=== PATIENT | male | born 1960 | race Asian ===

== ENCOUNTER 2020-05-14 06:57 | Outpatient (REF) | payer BC, SELFPAY ==
[2020-05-14 08:04] LABS: COVID-19 Test Negative (Negative)
== END 2020-05-14 06:58 | disposition home or self-care (01) ==
LOC: HO.LAB 06:57
PROVIDERS: Visit Provider Internal Medicine
DX: Z20.828 Contact with and (suspected) exposure to other viral communicable diseases (principal)
CPT/HCPCS: 87635

== ENCOUNTER 2020-05-28 06:59 | Outpatient (REF) | payer BC, SELFPAY ==
[2020-05-28 07:21] LABS: COVID-19 Test Negative (Negative)
== END 2020-05-28 07:00 | disposition home or self-care (01) ==
LOC: HO.LAB 06:59
PROVIDERS: Visit Provider Internal Medicine
DX: Z20.828 Contact with and (suspected) exposure to other viral communicable diseases (principal)
CPT/HCPCS: 87635

== ENCOUNTER 2020-05-31 14:23 | Outpatient (REF) | payer BC, SELFPAY ==
[2020-05-31 15:15] LABS: COVID-19 Test Negative (Negative)
== END 2020-05-31 14:24 | disposition home or self-care (01) ==
LOC: HO.LAB 14:23
PROVIDERS: PCP Internal Medicine; Visit Provider Internal Medicine
DX: Z20.828 Contact with and (suspected) exposure to other viral communicable diseases (principal)
CPT/HCPCS: 87635; C9803

== ENCOUNTER 2020-06-18 07:01 | Outpatient (REF) | payer OTHER, SELFPAY ==
[2020-06-18 08:05] LABS: COVID-19 Test Negative (Negative)
== END 2020-06-18 07:02 | disposition home or self-care (01) ==
LOC: HO.EMPCOV 07:01
PROVIDERS: Visit Provider Internal Medicine
DX: Z20.828 Contact with and (suspected) exposure to other viral communicable diseases (principal)
CPT/HCPCS: 87635; C9803

== ENCOUNTER 2020-09-06 08:32 | Outpatient (REF) | payer BC, SELFPAY ==
[2020-09-06 09:36] LABS: Influenza A PCR NEGATIVE (Negative); Influenza B PCR NEGATIVE (Negative); Resp Syncy Virus RNA Qual PCR NEGATIVE (Negative); SARS COV2 PCR INHOUSE NEGATIVE (Negative)
== END 2020-09-06 08:33 | disposition home or self-care (01) ==
LOC: HO.EMPCOV 08:32
PROVIDERS: Visit Provider Internal Medicine
DX: Z20.822 Contact with and (suspected) exposure to COVID-19 (principal)
CPT/HCPCS: 0241U; 36415

== ENCOUNTER 2020-09-26 07:35 | Outpatient (REF) | payer OTHER, SELFPAY ==
[2020-09-26 08:05] LABS: COVID-19 Test Negative (Negative); IDNOW Serial# 55D5AD1C
== END 2020-09-26 07:36 | disposition home or self-care (01) ==
LOC: HO.EMPCOV 07:35
PROVIDERS: Visit Provider Internal Medicine
DX: Z20.822 Contact with and (suspected) exposure to COVID-19 (principal)
CPT/HCPCS: 36415; 87635; C9803

== ENCOUNTER 2021-05-20 08:27 | Outpatient (REF) | payer BC, SELFPAY ==
[2021-05-20 09:21] LABS: Influenza A PCR NEGATIVE (Negative); Influenza B PCR NEGATIVE (Negative); Resp Syncy Virus RNA Qual PCR NEGATIVE (Negative); SARS COV2 PCR INHOUSE NEGATIVE (Negative)
== END 2021-05-20 08:28 | disposition home or self-care (01) ==
LOC: HO.LAB 08:27
PROVIDERS: Visit Provider Internal Medicine
DX: Z20.822 Contact with and (suspected) exposure to COVID-19 (principal)
CPT/HCPCS: 0241U; 36415; C9803

== ENCOUNTER 2022-04-11 14:37 | Outpatient (REF) | payer BC, SELFPAY | END 2022-04-11 14:38 | disposition home or self-care (01) | LOC: HO.HOSX 14:37 | PROVIDERS: Visit Provider Orthopaedic Surgery | DX: Z13.89 Encounter for screening for other disorder (principal) ==

== ENCOUNTER 2022-04-14 | Outpatient (REF) | payer BC, SELFPAY ==
--- NOTE | ~2022-04-14 | XR_ITS ---
EXAMINATION: XR ELBOW, RIGHT CLINICAL INFORMATION: M25.529 - Pain in unspecified elbow COMPARISON: None TECHNIQUE: AP, lateral, and oblique views of the right elbow. FINDINGS: Small osteophyte at the coronoid process. Small enthesopathic spurs at the common flexor and common extensor origins at the medial and lateral epicondyles. Small 2 mm chronic loose body is suspected in the elbow joint to the confluence of the radius, ulna, and distal humerus. No effusion. No fracture or malalignment. Bone mineralization is normal. Tiny enthesopathic spur at the triceps tendon insertion on the olecranon. XR/XR elbow RT 2V IMPRESSION: 1. Minimal arthrosis at the left elbow. 2. Small enthesopathic spurs at the common flexor and common extensor origins and the triceps insertion.
== END 2022-04-14 00:01 | disposition home or self-care (01) ==
LOC: HO.HOSX
PROVIDERS: Visit Provider Orthopaedic Surgery
DX: M77.11 Lateral epicondylitis, right elbow (principal)
CPT/HCPCS: 20605; 73070; J1100

== ENCOUNTER 2022-09-28 09:38 | Outpatient (REF) | payer BC, SELFPAY ==
--- NOTE | ~2022-09-28 | XR_ITS ---
EXAMINATION: XR CHEST CLINICAL INFORMATION: Cough COMPARISON: CT calcium scoring study with topogram 05/01/2021 ([facility]). TECHNIQUE: 2 views of the chest were obtained. FINDINGS: The lungs are clear. There is no airspace consolidation or groundglass opacity. The costophrenic sulci are well-defined. No hyperinflation. Heart size normal. Vascularity normal. Mediastinal contours unremarkable. No acute bony abnormality. XR/XR chest 2V IMPRESSION: Unremarkable examination.
== END 2022-09-28 09:39 | disposition home or self-care (01) ==
LOC: HO.XRAY 09:38
PROVIDERS: Absent Provider Emergency Medicine; PCP Internal Medicine; Visit Provider Emergency Medicine
DX: R05.9 Cough, unspecified (principal)
CPT/HCPCS: 71046

== ENCOUNTER 2022-09-29 11:29 | Outpatient (REF) | payer BC, SELFPAY ==
[2022-09-29 12:19] LABS: MANUAL DIFF FLAG NO
[2022-09-29 12:27] LABS: Basophils Absolute Auto 0.1 X10*3/uL (0.0-0.2); Basophils Percent Auto 0.4 % (0-2); Eosinophils Absolute Auto 0.1 X10*3/uL (0.0-0.4); Eosinophils Percent Auto 0.4 % (0-4); Hematocrit 47.2 % (42.0-52.0); Hemoglobin 16.1 g/dl (14.0-18.0); Imm Gran Abs Auto 0.04 X10*3/uL (0.00-0.03); Imm Gran Pct Auto 0.3 % (0.0-0.4); Lymphocytes Absolute Auto 3.4 X10*3/uL (1.2-4.9); Lymphocytes Percent Auto 25.3 % (20-40); Mean Corpuscular HGB Conc 34.1 g/dl (31.0-36.0); Mean Corpuscular Hemoglobin 30.6 pg (27.0-33.0); Mean Corpuscular Volume 89.7 fL (80.0-98.0); Monocytes Percent Auto 7.3 % (2-11); Neutrophils Absolute Auto 8.8 x10*3/uL (2.0-8.3); Neutrophils Percent Auto 66.3 % (45-73); Platelet Count 321 X10*3/uL (160-400); Red Blood Count 5.26 X10*6/uL (4.60-5.80); White Blood Count 13.2 X10*3/uL (4.8-10.8)
[2022-09-29 12:53] LABS: Alanine Aminotransferase 41 U/L (0-40); Albumin Level 4.3 g/dL (3.5-5.0); Alkaline Phosphatase 93 U/L (39-117); Anion Gap 13 (12-20); Aspartate Amino Transferase 24 U/L (5-37); Bilirubin Total 1.4 mg/dL (0.0-1.0); Blood Urea Nitrogen 14 mg/dL (9-16); C Reactive Protein 0.18 mg/dL (< or = 0.50); Calcium 9.4 mg/dL (8.4-10.2); Carbon Dioxide 26 mmol/L (22-29); Chloride 103 mmol/L (96-108); Estimated Glomerular Filt Rate > 60; Glucose Random 136 mg/dL (60-115); Lipase 33 U/L (8-78); Potassium 4.3 mmol/L (3.3-5.1); Sodium 138 mmol/L (135-145); Total Protein 7.6 g/dL (6.5-8.0)
[2022-09-29 13:07] LABS: Influenza A PCR NEGATIVE (Negative); Influenza B PCR NEGATIVE (Negative); Resp Syncy Virus RNA Qual PCR NEGATIVE (Negative); SARS COV2 PCR INHOUSE NEGATIVE (Negative)
[2022-09-29 13:08] LABS: Erythrocyte Sedimentation Rate 12 MM/HR (0-15)
== END 2022-09-29 11:30 | disposition home or self-care (01) ==
LOC: HO.LAB 11:29
PROVIDERS: PCP Internal Medicine; Visit Provider Emergency Medicine
DX: Z20.822 Contact with and (suspected) exposure to COVID-19 (principal); R42 Dizziness and giddiness; R05.9 Cough, unspecified
CPT/HCPCS: 0241U; 80053; 83690; 85025; 85652; 86140

== ENCOUNTER 2022-09-29 15:02 | Outpatient (REF) | payer BC, SELFPAY ==
[2022-09-29 16:59] LABS: Adenovirus PCR Not Detected (Not Detect.); Bordetella parapertussis PCR Not Detected (Not Detect.); Bordetella pertussis PCR Not Detected (Not Detect.); Chlamydia pneumoniae PCR Not Detected (Not Detect.); Coronavirus 229E PCR Not Detected (Not Detect.); Coronavirus HKU1 PCR Not Detected (Not Detect.); Coronavirus NL63 PCR Not Detected (Not Detect.); Coronavirus OC43 PCR Not Detected (Not Detect.); Influenza A PCR Not Detected (Not Detect.); Influenza B PCR Not Detected (Not Detect.); Parainfluenza 3 PCR Detected (Not Detect.); SARS-CoV-2 PCR Not Detected (Not Detect.)
[2022-09-29 17:00] LABS: Human metapneumovirus PCR Not Detected (Not Detect.); Mycoplasma pneumoniae PCR Not Detected (Not Detect.); Parainfluenza 1 PCR Not Detected (Not Detect.); Parainfluenza 2 PCR Not Detected (Not Detect.); Parainfluenza 4 PCR Not Detected (Not Detect.); RSV PCR Not Detected (Not Detect.); Rhino/Enterovirus PCR Not Detected (Not Detect.)
[2022-10-02 02:44] LABS: Legionella Ag Urine Not Detected (Not Detected)
== END 2022-09-29 15:03 | disposition home or self-care (01) ==
LOC: HO.LAB 15:02
PROVIDERS: Emergency Medicine; Visit Provider Internal Medicine Cardiovascular Disease
DX: Z13.89 Encounter for screening for other disorder (principal)
CPT/HCPCS: 87449; 87633

== ENCOUNTER 2022-10-04 13:13 | Outpatient (REF) | payer BC, SELFPAY ==
--- NOTE | ~2022-10-04 | CT_ITS ---
EXAMINATION: CT ABDOMEN AND PELVIS WITH CONTRAST CLINICAL INFORMATION: Weight loss, diarrhea. Prior history inguinal hernia repairs, remote on right. COMPARISON: Abdominal ultrasound 11/14/2015 TECHNIQUE: Multidetector volumetric images were obtained from the superior aspect of the liver through the pubic symphysis following administration 85 mL of Omnipaque 350 intravenous contrast. Sagittal and coronal reformatted images were obtained on the technologist's workstation. Oral contrast: Yes This CT examination was performed using dose optimization techniques as appropriate, variously including the following: *Automated exposure control *Adjustment of mA and/or kV according to patient size (this includes techniques or standardized protocols for targeted exams where dose is matched to indication/reason for exam; i.e. extremities or head) *Use of iterative reconstruction technique DLP: 623 mGy-cm FINDINGS: LUNG BASES: The visualized lung bases are unremarkable. LIVER, GALLBLADDER, AND BILIARY TREE: The liver is normal in size and smooth in contour. There is mild diffuse hepatic steatosis. A punctate hypodensity approximately 5 mm segment 4A left lobe is too small to characterize with density measurements, appearance likely tiny cyst. The remainder of the liver is homogeneous. The gallbladder is unremarkable. No stone or wall thickening. No pericholecystic inflammatory changes. Common duct unremarkable. PANCREAS: Normal. SPLEEN: Normal. 2 small incidental splenules left upper quadrant, both under 1 cm. ADRENAL GLANDS: Normal. KIDNEYS AND URETERS: The kidneys are normal in size and enhance symmetrically. There is no hydronephrosis, hydroureter, or perinephric stranding. There are likely a few scattered subcentimeter cysts on each side, largest left upper pole 0.9 cm and water attenuation, 2 HU. No additional imaging follow-up recommended. BLADDER: Unremarkable. GASTROINTESTINAL TRACT: There is some subtle smooth wall gastric wall thickening proximal lesser curvature and mid greater curvature without visible mass or ulcer crater. Serosal contour appears normal. The small bowel is unremarkable. The appendix is normal. There is no inflammatory changes in the small or large bowel or mesentery. Focal decrease caliber mid sigmoid colon is likely related to peristalsis. There is no ascites. ABDOMINAL WALL: No ventral hernia. Mild fatty fullness in the bilateral inguinal canals, greater on right. A small seroma resides just proximal to the right inguinal canal measuring around 0.8 x 1.6 cm. LYMPH NODES: There is a solitary 1 cm node between the pancreas and duodenum. No mesenteric or retroperitoneal or pelvic adenopathy. VASCULAR: Incidental circumaortic left renal vein. Abdominal aorta normal in caliber. PELVIC VISCERA: Unremarkable. OSSEOUS STRUCTURES: Unremarkable. Degenerative vertebral spurring lower thoracic and mid lumbar spine. Results discussed with patient on 10/06/2022. CT/CT abdomen pelvis w IV con IMPRESSION: -Nonspecific mild smooth gastric wall thickening. No ulcer crater or visible mass. Solitary upper central right mesenteric node, 1 cm. -Mild focal decreased caliber mid sigmoid likely peristalsis. No obstruction or inflammatory changes smaller large bowel. No ascites. -Small seroma at right inguinal canal under 2 cm.
[2022-10-04] MEDS: iohexoL 350 MG/ML 100 ML INFUS..BTL IV (15:24)
[2022-10-04] MEDS: Barium Sulfate Oral (Berry) 450 ML ORAL.SUSP 900 ML PO (15:27)
== END 2022-10-04 13:14 | disposition home or self-care (01) ==
LOC: HO.CT 13:13
PROVIDERS: PCP Internal Medicine; Visit Provider Internal Medicine
DX: R63.4 Abnormal weight loss (principal); R19.7 Diarrhea, unspecified
CPT/HCPCS: 74177; Q9967

== ENCOUNTER 2024-05-30 13:53 | Outpatient (AMB) | payer OTHER, SELFPAY ==
--- NOTE | 2024-05-30 13:59 | A.OFFVIS_ITS ---
Intake Visit Reasons: Inj-left knee injection Intake Note: Gabe is a 64 year old male who presents today for a left knee injection Allergies No Known Allergies [No Known Allergies*] Allergy (Verified 04/14/22 07:54) HPI HPI Inj-left knee injection: Details: Gabe is a 64 year old male who presents today with left knee pain after playing Tennis/Pickleball 5 days in a row. He has a history of left knee osteoarthritis and has had injections in the past. [facility]LY [facility] Medical History (Updated 05/30/24 @ 14:23 by Raúl Braswell MD) Diabetes Hypertension Surgical History (Updated 04/14/22 @ 08:06 by Sheridan Valenzuela CMA) H/O hernia repair Social History (Updated 04/14/22 @ 08:06 by Sheridan Valenzuela CMA) Current occupational status: employed Physical Exam Extrem Other: Mild left knee effusion. Tenderness to palpation medial joint line. Negative Alicia's. Office Procedures Joint Inj/Aspir; Non-Pain Clin Joint Injection/Drain Details: Injected 1 mL of Decadron and 3 mL 1% lidocaine and 3 mL of 0.25% Marcaine. Site was prepped using aseptic technique. Patient tolerated the procedure well. Shoulders, Hips, Knees, Knee Large Joint Injection : Left Knee Coding Procedure code (CPT) selection complete Assessment & Plan Assessment & Plan (1) Osteoarthritis of left knee: Code(s): M17.12 - Unilateral primary osteoarthritis, left knee Category: Medical Plan: I injected his left knee today. He will see me as needed. Informed him to the hyperglycemic effects of steroids. Coding Level of Care Code Est Pt Level 3 (78529) Diagnoses Osteoarthritis of left knee M17.12 CPT Codes Shoulders, Hips, Knees, - Knee Large Joint Injection 42843: Left Knee ([id number])
== END 2024-05-30 14:22 | disposition home or self-care (01) ==
LOC: HO.HOS 13:53
PROVIDERS: PCP Internal Medicine; Visit Provider Orthopaedic Surgery
DX: M17.12 Unilateral primary osteoarthritis, left knee (principal)
CPT/HCPCS: 20610; 99213

== ENCOUNTER → 2024-05-30 13:53 | Outpatient (BNVA) | payer BC, SELFPAY | PROVIDERS: PCP Internal Medicine; Visit Provider Orthopaedic Surgery | DX: M17.12 Unilateral primary osteoarthritis, left knee (principal) | CPT/HCPCS: 20610; J0665; J1100; J2003 ==

== ENCOUNTER 2024-08-01 15:50 | Outpatient (REF) | payer OTHER, SELFPAY ==
--- NOTE | ~2024-08-01 | MR_ITS ---
CLINICAL HISTORY: M23.92 - Unspecified internal derangement of left knee MR left knee without contrast Comparison: None Findings: There is a tear of the medial meniscus involving the posterior horn which extends into the body. The anterior horn of the medial meniscus is intact. The lateral meniscus is intact. The anterior and posterior cruciate ligaments are intact. There is thickening and increased signal in the anterior cruciate ligament. The medial and lateral collateral ligaments are intact. There is medial periligamentous edema; strain could be considered. No edema in the posterior lateral corner. The extensor mechanism is intact. Small joint effusion. No Wakefield's cyst. There is an intra-articular are ossific fragment measuring up to 1.0 cm in tibiofemoral joint space at the anterior aspect (series 9, image 16 and series 11, image 12). No fracture, stress reaction or osseous lesion. There is mild osteophytosis in the medial tibiofemoral compartment. There is partial-thickness chondromalacia in the medial tibiofemoral compartment. The hyaline cartilage is otherwise preserved. Impression: Tear of the medial meniscus. Thickening and increased signal in the anterior cruciate ligament may indicate mucoid degeneration. Small joint effusion. 1.0 cm intra-articular ossific fragment. Partial-thickness chondromalacia in the medial tibiofemoral compartment. This document has been electronically signed by: Rand Garrison MD on 08/02/2024 16:12:14
--- OUTSIDE RECORDS SUMMARY | 2024-08-01 17:26 | XMS_ITS ---
Author Name [facility] Organization Unknown Immunizations Vaccine Date Source Lot Number Status Influenza, Quadrivalent (FLU CELVAX) MDCK, Preservative Free IM 05/11/2023 [facility] [id number] completed
== END 2024-08-01 15:51 | disposition home or self-care (01) ==
LOC: HO.MRI 15:50
PROVIDERS: Visit Provider Orthopaedic Surgery
DX: M23.92 Unspecified internal derangement of left knee (principal)
CPT/HCPCS: 73721

== ENCOUNTER → 2024-08-01 15:56 | Outpatient (BNV) | payer OTHER, SELFPAY | PROVIDERS: Visit Provider Radiology Diagnostic Radiology | DX: S83.242A Other tear of medial meniscus, current injury, left knee, initial encounter (principal); M25.462 Effusion, left knee; M94.262 Chondromalacia, left knee | CPT/HCPCS: 73721 ==

== ENCOUNTER 2024-08-05 10:11 | Outpatient (AMB) | payer OTHER, SELFPAY ==
--- NOTE | 2024-08-05 10:14 | A.OFFVIS_ITS ---
Intake Visit Reasons: OV-LT Knee MRI review Intake Note: Gabe is a 64 year old male who presents today for a Left Knee MRI Review. Left knee pain was onset by consecutive Pickle Ball participation. Left knee injected 05/30/24 Impression: Tear of the medial meniscus. Thickening and increased signal in the anterior cruciate ligament may indicate mucoid degeneration. Small joint effusion. 1.0 cm intra-articular ossific fragment. Partial-thickness chondromalacia in the medial tibiofemoral compartment. 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 This has been bothering him for nearly 3 months. Describes pain in the medial aspect of the l eft knee. His MRI was obtained and showed a complex medial meniscus tear. 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 [facility]LY [facility] Medical History (Updated 08/05/24 @ 12:42 by Raúl Braswell MD) Diabetes Hypertension Surgical History (Updated 04/14/22 @ 08:06 by Sheridan Valenzuela CMA) H/O hernia repair Social History (Updated 04/14/22 @ 08:06 by Sheridan Valenzuela CMA) Current occupational status: employed Physical Exam Extrem Other: Tenderness to palpation medial joint line positive medial Alicia's. Results Reviewed Results Reviewed: I personally reviewed the MR images. 1. Mild abnormality of the supraspinatus and subscapularis compatible with tendinosis and perhaps small areas of partial tearing but no measurable defect or tendon retraction. 2. Mild arthrosis of the acromioclavicular joint. Assessment & Plan Assessment & Plan (1) Tear of medial meniscus of left knee: Code(s): S83.242A - Other tear of medial meniscus, current injury, left knee, initial encounter Category: Medical Plan: This is a 64-year-old gentleman with a left knee medial meniscus tear. He has tenderness along the joint line pain with twisting and can not engage in daily activities. I recommend left knee arthroscopy. We discussed the risks, benefits and alternatives of surgery including to, but not limited to, the risk of infection, stiffness, pain as well as exacerbation of pre-existing osteoarthritis. He understands this and we will proceed forward accordingly. Coding Level of Care Code Est Pt Level 4 (43669) Diagnoses Tear of medial meniscus of left knee S83.242A
== END 2024-08-05 10:48 | disposition home or self-care (01) ==
PROVIDERS: Visit Provider Orthopaedic Surgery
DX: S83.242A Other tear of medial meniscus, current injury, left knee, initial encounter (principal)
CPT/HCPCS: 99214

== ENCOUNTER 2024-09-23 09:59 | Day surgery (SDC) | payer OTHER, SELFPAY ==
[2024-09-21 10:09] VITALS: BMI 25.1
[2024-09-23] VITALS (11 sets, daily range): BP systolic 122–151; BP diastolic 65–90; PULSE 57–68; RESP 12–18; TEMP 36.1–36.7; O2SAT 94–100
--- NOTE | 2024-09-23 11:22 | P.CONAN_ITS ---
Documented by User: Mattie Hernandez NP 09/21/24 14:44 HPI - Anesthesia Eval Consult details Narrative: 64yo M for Left Knee Arthroscopy medial meniscectomy Anesthesia Pre-Procedure Meds Is the patient on any of the following meds?: SGLT2 Inhib PMFSH Active Problems Active Problems: All Active Problems Tear of medial meniscus of left knee (Acute) Internal derangement of left knee (Acute) Osteoarthritis of left knee (Acute) Right lateral epicondylitis (Acute) Past Medical History Medical History (Updated 08/05/24 @ 12:42 by Raúl Braswell MD) Diabetes Hypertension Surgical History Surgical History (Updated 09/23/24 @ 10:50 by Cinthya Mar RN) Hx of inguinal hernia surgery H/O shoulder surgery H/O hernia repair Social History Social History (Updated 04/14/22 @ 08:06 by Sheridan Valenzuela CMA) Spiritual Healthcare Practices: none Congregation Healthcare Practices: [employer] Healthcare Practices: none Advance Directives: No (HCP on file [facility]-spouse is primary contact) Advance Directives Information Provided: Yes (as above noted) Advance Directives on File: No Recently lost weight without trying: No Eating poorly because of decreased appetite: No Nutrition Risks: No Nutritional Risk Current occupational status: employed Meds Allergies Allergy/AdvReac Type Severity Reaction Status Date / Time No Known Allergies Allergy Verified 09/23/24 10:51 [No Known Allergies*] Home Medications ?Medication ?Instructions ?Recorded ?Confirmed ?Last Taken ?Type lisinopril 20 mg tablet 20 mg PO DAILY 04/14/22 09/21/24 Unknown History empagliflozin 10 mg tablet 10 mg PO QAM 09/21/24 09/21/24 Unknown History (Jardiance) metformin 1,000 mg tablet 1,000 mg PO DAILY 09/21/24 09/21/24 Unknown History aspirin 81 mg tablet,delayed 81 mg PO DAILY 09/23/24 09/23/24 Unknown History release Exam Height,Weight and Vital Signs: Height 5 ft 11 in Weight 81.647 kg Assessment and Plan Assessment Anesthesia Assessment: Chart Reviewed Documented by User: Katrin Cifuentes DO 09/23/24 11:24 HPI - Anesthesia Eval Anesthesia Pre-Procedure Meds Is the patient on any of the following meds?: SGLT2 Inhib PMFSH Past Medical History Medical History (Updated 08/05/24 @ 12:42 by Raúl Braswell MD) Diabetes Hypertension Family History Family history of problems with anesthesia: No Surgical History Surgical History (Updated 09/23/24 @ 10:50 by Cinthya Mar RN) Hx of inguinal hernia surgery H/O shoulder surgery H/O hernia repair History of Problems with Anesthesia: No Social History Social History (Updated 04/14/22 @ 08:06 by Sheridan Valenzuela CMA) Spiritual Healthcare Practices: none Congregation Healthcare Practices: [employer] Healthcare Practices: none Advance Directives: No (HCP on file [facility]-spouse is primary contact) Advance Directives Information Provided: Yes (as above noted) Advance Directives on File: No Recently lost weight without trying: No Eating poorly because of decreased appetite: No Nutrition Risks: No Nutritional Risk Current occupational status: employed Meds Allergies Allergy/AdvReac Type Severity Reaction Status Date / Time No Known Allergies Allergy Verified 09/23/24 10:51 [No Known Allergies*] Home Medications ?Medication ?Instructions ?Recorded ?Confirmed ?Last Taken ?Type lisinopril 20 mg tablet 20 mg PO DAILY 04/14/22 09/21/24 Unknown History empagliflozin 10 mg tablet 10 mg PO QAM 09/21/24 09/21/24 Unknown History (Jardiance) metformin 1,000 mg tablet 1,000 mg PO DAILY 09/21/24 09/21/24 Unknown History aspirin 81 mg tablet,delayed 81 mg PO DAILY 09/23/24 09/23/24 Unknown History release Exam Exam Date and Time: 09/23/24 1123 Airway Mallampati Class: III TM Dist: >3cm Neck ROM: Full Loose/Missing/Broken Teeth: No (patient denies any loose or broken teeth) Heart: S1S2 Lungs: CTAB Assessment and Plan Assessment Anesthesia Assessment: Anesthesia Plan Discussed and Chart Reviewed Final Anesthetic Review Family History of Problems with Anesthesia: No History of Problems with Anesthesia: No NPO: Yes ASA Class: II Final Preanesthetic Review: No Changes in Pt Med Stat, Meds/Allgs Chart Reviewed, Consent Obtained/Reviewed and Anes Risks/Benef Reviewed Patient Risk: Low Procedure Risk: Low Anesthetic Plan Anesthetic Plan: GA and Agree w/ Assess. and Plan Disposition: Standard PACU
[2024-09-23] MEDS: Lactated Ringers 1,000 ML 100 ML IVCONT (11:30)
[2024-09-23 11:34] LABS: Glucose, Whole Blood 163 mg/dL (60-115)
--- NOTE | 2024-09-23 12:03 | MHC.SHP ---
Pre-Procedural Eval Section A - 24 Hr Update-Section A only Date of Service: 09/23/24 The patient is an INPATIENT: No Changes since office visit: No Cold of Flu in the past 2 weeks, No New Medical Problems, No Changes in Medication and No Patient answered all questions The patient has been examined within 24 hours of the surgical procedure. The History & Physical has been completed within 30 days and I have reviewed it.: Yes Section B - Complete if H&P > 30 days Chief Complaint: Other tear of medial meniscus, current injury, lef Allergies: Allergies Allergy/AdvReac Type Severity Reaction Status Date / Time No Known Allergies Allergy Verified 09/23/24 10:51 [No Known Allergies*] Plan I have reviewed the history and physical and performed a pertinent physical examination on my patient. No changes have occurred unless specified. Time Spent With Patient Time: Total time managing care of this patient today ____ minutes.
[2024-09-23] MEDS: Acetaminophen 1,000 MG/100 ML PIGGYBACK 400 MG IV (12:20)
--- NOTE | 2024-09-23 13:10 | P.OP_ITS ---
Operative Note Operative Note Date of Service: 09/23/24 Narrative: Date of Service: 09/23/24 Pre-op diagnosis: Right knee MMT Post-op diagnosis: other (1) Right knee MMT 2) right knee trochlear OA) Procedure: Partial medial meniscectomy right knee with chondroplasty Surgeon: Raúl Braswell MD Anesthesia: GLMA and local Was an Senior Program Planner used for this Procedure?: No Estimated blood loss (mL): 5 Tourniquet time (min): 20 IV fluids (mL): 500 Pathology: none sent Condition: stable Disposition: PACU Procedure in detail: Patient was brought to the operating room placed supine on the arthroscopic table and prepped and draped in standard sterile fashion. A time-out was called to identify proper site proper procedure proper surgeon and IV antibiotics per weight were administered. I began by exsanguinating the limb and insufflating tourniquet to 300 mm Hg. Then made a standard anterolateral stab incision. The knee was insufflated with water and 30 degree arthroscope was placed. There was grade 1 fibrillations of the patella and G# changes of the trochlea extending medially over the anterior MFC. The gutter and suprapatellar pouch were clean. I descended into the medial compartment where I made my medial portal under direct visualization. There was a complex tear of the posterior horn of the medial meniscus. There was a flap tear extending to the capsule. The root was intact and there was grade 1 changes in MFC but minimal. I used a combination of biter shaver and cautery to remove unstable portions of the meniscus. Apprxximately 30% meniscal volume was removed. Once I was satisfied with this the ACL was examined and found to be intact and the lateral compartment also was without the need for intervention. I then removed all instrumentation and closed the portals with skin glue. 25 mL of 2% Marcaine with epinephrine was injected into the joint and the surrounding soft tissues. Patient was then placed in sterile dressing extubated brought recovery room stable condition. There were no known complications.
[2024-09-23] MEDS: fentaNYL citrate/PF 100 MCG/2 ML VIAL 50 MCG IVPUSH (13:30)
[2024-09-23] MEDS: oxyCODONE HCl Immed Release 5 MG TABLET PO (14:05)
== END 2024-09-23 15:01 | disposition home or self-care (01) ==
PROVIDERS: Visit Provider Orthopaedic Surgery
PROC: (CPT 29870; principal; 2024-09-23 12:00)
DX: S83.232A Complex tear of medial meniscus, current injury, left knee, initial encounter (principal); M17.12 Unilateral primary osteoarthritis, left knee; Y93.69 Activity, other involving other sports and athletics played as a team or group; Y93.89 Activity, other specified; Y92.9 Unspecified place or not applicable; Y99.9 Unspecified external cause status; I10 Essential (primary) hypertension; E11.9 Type 2 diabetes mellitus without complications; Z79.84 Long term (current) use of oral hypoglycemic drugs; Z79.82 Long term (current) use of aspirin; Z79.899 Other long term (current) drug therapy
CPT/HCPCS: 29881; 82947; J0131; J0171; J0690; J1100; J1885; J2003; J2250; J2405; J2704; J2795; J3010

== ENCOUNTER → 2024-09-23 09:59 | Outpatient (BNV) | payer OTHER, SELFPAY | PROVIDERS: Visit Provider Orthopaedic Surgery | DX: S83.231A Complex tear of medial meniscus, current injury, right knee, initial encounter (principal) | CPT/HCPCS: 29881 ==

== ENCOUNTER 2024-09-29 11:22 | Outpatient (AMB) | payer OTHER, SELFPAY ==
--- NOTE | 2024-09-29 11:42 | A.OFFVIS_ITS ---
Intake Visit Reasons: PO LT knee 09/23/24 NE Intake Note: Gabe is a 64 year old male who presents today for a post operative visit s/p left knee on 09/23/24 NE. Patient reports he is doing well, he has no concerns today. 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 Braswell was availab le to see the patient with me in the office today and discuss the postoperative imaging as well as the treatment plan. Overall the patient is doing very well and like to return back to tennis and pickle ball. [facility] Medical History (Updated 08/05/24 @ 12:42 by Raúl Braswell MD) Diabetes Hypertension Surgical History Hx of inguinal hernia surgery H/O shoulder surgery H/O hernia repair Social History (Updated 04/14/22 @ 08:06 by Sheridan Valenzuela CMA) Current occupational status: employed Review of Systems Const All systems reviewed & are unremarkable except as noted in HPI and below Physical Exam Const General: cooperative, healthy appearing and no acute distress Resp Effort & Inspection: normal respiratory effort and able to speak in complete sentences Cardio Rate: regular rate Peripheral pulses: Peripheral pulses 2+ throughout Skin Lesions: no lesions Rashes: no rashes Extrem Other: Left knee incision sites clean dry and intact. No signs of infection. NVI. 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 Braswell. Overall the patient is doing very well and like to return back to tennis and pickle ball. Dr. Braswell was available to see the patient with me in the office today and discuss the postoperative imaging as well as the treatment plan. Patient resume back to normal activities as tolerated using pain as his guide. Has follow-up with orthopedics will be p.r.n., sooner if needed. Coding Level of Care Code Global (19944) Diagnoses Tear of medial meniscus of left knee S83.242A Osteoarthritis of left knee M17.12
--- OUTSIDE RECORDS SUMMARY | 2024-09-29 13:59 | XMS_ITS | Clinical Summary ---
Author Organization [facility] Address [address] [place] [address] Care Team Providers Care Hand Box Coverer Name Role Phone Julio Small MD Primary Care Provider [phone]- [phone] Immunizations Name Administration Dates Next Due Influenza, Quadrivalent (FLU CELVAX) MDCK, Preservative Free IM 05/11/2023 Social History Tobacco Use Types Packs/Day Years Used Date Smoking Tobacco: Never Assessed Sex and Gender Information Value Date Recorded Sex Assigned at Not on file Gender Identity Not on file Sexual Orientation Not on file Plan of Treatment Health Maintenance Due Date Last Done Comments Hepatitis C Virus Screening 1961 HIV Screening 1974 DTaP/Tdap/Td Vaccines (1 - Tdap) 02/03/1980 Colonoscopy 2006 Pneumococcal Vaccines 50+ (1 of 1 - PCV) 2011 Zoster (Shingles) Vaccine (1 of 2) 2011 Influenza Vaccine 02/25/2024 05/11/2023, 05/17/2020, 05/04/2019 COVID-19 Vaccine (4 - 2023-2 5 season) 2024 04/25/2021, 08/02/2020, 07/12/2020 RSV Vaccine 60 years and older and Patients (1 - 1-dose 75+ series) 02/03/2036 Hepatitis B Vaccines Aged Out No long er eligible based on patient's age to complete this topic Pneumococcal Vaccine: Pediatric (0-5 Years) and At-Risk Patients (6 to 49 Years) Aged Out No longer eligible b ased on patient's age to complete this topic Care Teams Hand Box Coverer Relationship Specialty Start Date End Date Julio Small MD [address] [facility] [address] [place] [address] PCP - General Internal Medicine 06/13/19
== END 2024-09-29 12:37 | disposition home or self-care (01) ==
PROVIDERS: Visit Provider Physician Assistant
DX: S83.242A Other tear of medial meniscus, current injury, left knee, initial encounter (principal); M17.12 Unilateral primary osteoarthritis, left knee
CPT/HCPCS: 99024

== ENCOUNTER 2024-11-21 06:56 | Outpatient (REF) | payer OTHER, SELFPAY ==
--- OUTSIDE RECORDS SUMMARY | 2024-11-21 07:04 | XMS_ITS | Clinical Summary ---
Author Organization [facility] Address [address] [place] [address] Care Team Providers Care Stitching Machine Feeder Or Offbearer Name Role Phone Julio Small MD Primary Care Provider [phone]- [phone] Immunizations Immunization Administration Dates Next Due Influenza, Quadrivalent (FLU CELVAX) MDCK, Preservative Free IM 05/11/2023 Social History Tobacco Use Types Packs/Day Years Used Date Smoking Tobacco: Never Assessed Sex and Gender Information Value Date Recorded Sex Assigned at Not on file Legal Sex Male 1:06 PM EST Gender Identity Not on file Sexual Orientation [...] age to complete this topic Care Teams Stitching Machine Feeder Or Offbearer Relationship Specialty Start Date End Date Julio Small MD [address] [facility] [address] [place] [address] PCP - General Internal Medicine 06/13/19
[2024-11-21 08:15] LABS: Estimated Average Glucose 209 mg/dL; Hemoglobin A1C 317.4812 umol/L; Hemoglobin A1c % 8.9 % (<6.0); Total Hemoglobin (HGBA1C) 4301.9153 umol/L
[2024-11-21 08:32] LABS: Alanine Aminotransferase 45 U/L (0-40); Anion Gap 15 (12-20); Aspartate Amino Transferase 23 U/L (5-37); Blood Urea Nitrogen 14 mg/dL (9-16); Calcium 9.6 mg/dL (8.4-10.2); Carbon Dioxide 24 mmol/L (22-29); Chloride 106 mmol/L (96-108); Cholesterol 232 mg/dL (<200); Estimated Glomerular Filt Rate > 60; Glucose Random 210 mg/dL (60-115); HDL Cholesterol 53 mg/dL (>40); LDL Cholesterol Calculated 119 mg/dL (<100); Potassium 4.1 mmol/L (3.3-5.1); Sodium 141 mmol/L (135-145); Triglycerides 303 mg/dL (<150)
[2024-11-21 08:37] LABS: Creatinine Urine 77.08 mg/dL; Microalbum/Creatinine Ratio Ur 18.1 ug/mg cr (<30)
[2024-11-21 08:53] LABS: Prostate Specific Antigen 1.04 ng/mL (<0.05-4.0)
== END 2024-11-21 06:57 | disposition home or self-care (01) ==
LOC: HO.LAB 06:56
PROVIDERS: PCP Internal Medicine; Visit Provider Internal Medicine
DX: Z00.00 Encounter for general adult medical examination without abnormal findings (principal); E11.9 Type 2 diabetes mellitus without complications; E78.5 Hyperlipidemia, unspecified; I10 Essential (primary) hypertension; R79.89 Other specified abnormal findings of blood chemistry; Z12.5 Encounter for screening for malignant neoplasm of prostate
CPT/HCPCS: 36415; 80048; 80061; 82043; 82570; 83036; 84153; 84450; 84460

== ENCOUNTER 2024-12-27 16:16 | Outpatient (AMB) | payer OTHER, SELFPAY ==
--- NOTE | 2024-12-27 16:19 | MHC.OFFVIS ---
Intake Visit Reasons: INJ Left Knee Injection Intake Note: Gabe is a 64 year old male who presents today for a follow up of his left knee, he is requesting an injection. 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 He has 3-4 months status post left knee arthroscopy for meniscus tear with intraoperative findings of osteoarthritis. He was doing well until recently when his knee started to become painful and swollen. [facility] Medical History (Updated 08/05/24 @ 12:42 by Raúl Braswell MD) Diabetes Hypertension Surgical History Hx of inguinal hernia surgery H/O shoulder surgery H/O hernia repair Social History (Updated 04/14/22 @ 08:06 by Sheridan Valenzuela CMA) Current occupational status: employed Physical Exam Extrem Other: Large suprapatellar effusion left knee Office Procedures Joint Inj/Aspir; Non-Pain Clin Joint Injection/Drain Details: Injected 1 mL of Decadron and 3 mL 1% lidocaine and 3 mL of 0.25% Marcaine. Site was prepped using aseptic technique. Patient tolerated the procedure well. Shoulders, Hips, Knees, Knee Large Joint Injection : Left Knee Coding Procedure code (CPT) selection complete Assessment & Plan Assessment & Plan (1) Internal derangement of left knee: Code(s): M23.92 - Unspecified internal derangement of left knee Category: Medical Plan: Aspirated and injected left knee. Normal-appearing joint fluid. NSAIDs and activity modification with quad strengthening. Coding Level of Care Code Est Pt Level 3 (91553) Diagnoses Internal derangement of left knee M23.92 CPT Codes Shoulders, Hips, Knees, - Knee Large Joint Injection : Left Knee ([id number])
== END 2024-12-27 16:27 | disposition home or self-care (01) ==
LOC: HO.HOS 16:16
PROVIDERS: PCP Internal Medicine; Visit Provider Orthopaedic Surgery
DX: M23.92 Unspecified internal derangement of left knee (principal)
CPT/HCPCS: 20610

== ENCOUNTER → 2024-12-27 16:16 | Outpatient (BNVA) | payer OTHER, SELFPAY | PROVIDERS: PCP Internal Medicine; Visit Provider Orthopaedic Surgery | DX: M23.92 Unspecified internal derangement of left knee (principal) | CPT/HCPCS: 20610; J0665; J1100; J2003 ==

== ENCOUNTER 2025-05-05 08:40 | Outpatient (REF) | payer OTHER, SELFPAY ==
--- OUTSIDE RECORDS SUMMARY | 2025-05-05 08:59 | XMS_ITS ---
Author Name [facility] ([place], [place]) Organization Unknown Immunizations Vaccine Date Source Lot Number Status Influenza, Quadrivalent (FLU CELVAX) MDCK, Preservative Free IM 05/11/2023 [facility] [id number] completed Encounters Encounter Type Encounter Reason Primary Diagnosis Location Date Ambulatory [facility] 05/11/2023 Care Team Organization Name Specialty Phone Email Start Date End Da te [facility] Julio Small Primary Care 05/11/20232024 [facility] Julio Small MD Primary Care 05/11/2023 05/11/2023
--- OUTSIDE RECORDS SUMMARY | 2025-05-05 08:59 | XMS_ITS | Clinical Summary ---
Author Organization [facility] Address [address] [place] [address] Care Team Providers Care Technical Sourcing Recruiter Name Role Phone Julio Small MD Primary Care Provider [phone] Immunizations Immunization Administration Dates Next Due Influenza, [...] Vaccine (1 of 2) 2011 Influenza Vaccine 02/24/2025 05/11/2023, 05/17/2020, 05/04/2019 COVID-19 Vaccine (4 - 2024-2 6 season) 2025 04/25/2021, 08/02/2020, 07/12/2020 RSV Vaccine 60 years and older and Patients (1 - 1-dose 75+ series) 02/03/2036 Hepatitis B Vaccines Aged Out No long er eligible based on patient's age to complete this topic Care Teams Technical Sourcing Recruiter Relationship Specialty Start Date End Date Julio Small MD [address] [facility] [address] [place] [address] PCP - General Internal Medicine 06/13/19
[2025-05-05 10:24] LABS: Alanine Aminotransferase 39 U/L (0-40); Aspartate Amino Transferase 55 U/L (5-37); Cholesterol 193 mg/dL (<200); HDL Cholesterol 54 mg/dL (>40); Triglycerides 213 mg/dL (<150)
== END 2025-05-05 08:41 | disposition home or self-care (01) ==
LOC: HO.LAB 08:40
PROVIDERS: PCP Internal Medicine; Visit Provider Internal Medicine
DX: E11.9 Type 2 diabetes mellitus without complications (principal); E78.5 Hyperlipidemia, unspecified
CPT/HCPCS: 36415; 80061; 83036; 84450; 84460

== ENCOUNTER 2025-05-18 06:20 | Outpatient (REF) | payer OTHER, SELFPAY ==
--- OUTSIDE RECORDS SUMMARY | 2025-05-18 06:22 | XMS_ITS | Clinical Summary ---
Author Organization [facility] Address [address] [place] [address] Care Team Providers Care Mandrel Maker Name Role Phone Julio Small MD Primary Care Provider [phone] Immunizations Immunization Administration Dates Next Due Influenza, [...] season) 2025 04/25/2021, 08/02/2020, 07/12/2020 RSV Vaccine 50 years and older and Patients (1 - 1-dose 75+ series) 02/03/2036 Hepatitis B Vaccines Aged Out No long er eligible based on patient's age to complete this topic Care Teams Mandrel Maker Relationship Specialty Start Date End Date Juloi Small MD [address] [facility] [address] [place] [address] PCP - General Internal Medicine 06/13/19
== END 2025-05-18 06:21 | disposition home or self-care (01) ==
LOC: CF 06:20
PROVIDERS: Visit Provider Internal Medicine
DX: Z13.89 Encounter for screening for other disorder (principal)